=== PATIENT | male | born 1950 | race Two or more races ===

== ENCOUNTER 2019-11-29 11:25 | Outpatient (CLI) | payer OTHER | END 2019-11-29 13:00 | disposition home or self-care (01) | LOC: OFIC 805 11:25 | PROVIDERS: ATTEND Otolaryngology | DX: J32.8 Other chronic sinusitis (principal); G50.1 Atypical facial pain; R09.81 Nasal congestion ==

== ENCOUNTER → 2019-12-27 | Outpatient (CLI) | payer OTHER | END | disposition home or self-care (01) | LOC: OFIC 805 10:30 | PROVIDERS: ATTEND Otolaryngology | DX: J32.8 Other chronic sinusitis (principal); G50.1 Atypical facial pain; R09.81 Nasal congestion ==